=== PATIENT | female | born 2005 | race African-American/Black ===

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

== ENCOUNTER 2025-01-08 01:30 | Emergency (ER) | payer MEDICAID ==
[~2025-01-08] VITALS: Ht 165.1 cm; Wt 82.0 kg
[2025-01-08 01:33] VITALS: BP 152/84; PULSE 109; RESP 18; TEMP 38.1; O2SAT 99
[2025-01-08] MEDS: MAGNESIUM/ALUMINUM HYDROXIDE/SIMETHICONE 30ML UDC PO ONE (03:10)
[2025-01-08] MEDS: DEXAMETHASONE 10 MG/ML VIAL PO ONE (03:10)
[2025-01-08] MEDS ORDERED: MAG-55 MT (04:11)
== END 2025-01-08 04:29 | disposition home or self-care (01) ==
LOC: ER 01:32
DX: J02.9 Acute pharyngitis, unspecified (principal); F41.9 Anxiety disorder, unspecified; J45.909 Unspecified asthma, uncomplicated; Z91.018 Allergy to other foods
CPT/HCPCS: 99283; 71045; 93005; J1100